=== PATIENT | male | born 1970 | race Two or more races ===

== ENCOUNTER 2019-01-27 22:50 | Emergency (ER) | payer SELFPAY ==
[~2019-01-27] VITALS: Ht 185.4 cm; Wt 99.8 kg
[2019-01-27 22:50] VITALS: BP 162/98
--- NOTE | 2019-01-27 22:50 | NUR ---
ED Nurse Note: Patient brought in by RA Olamide gan with complaints of abdominal pain while at work. Patient also reports that he has not has a bowel movement in 4 days. Will continue to monitor the patient.
--- NOTE | 2019-01-27 22:57 | Emergency Room Report ---
History of Present Illness General Chief Complaint: Abdominal Pain Source: Patient Present Illness HPI Is a 48-year-old male with no past medical history. He is presents with complaint abdominal pain. This been a problem for about a month. He said he felt constipated. Normally goes twice a day but now just once a day but very small. At work today, he had sharp abdominal pain and felt short of breath and got anxious. He called 911. Better now. No fever chills. Pain was diffuse. No trauma. Has radiation to the upper back area. Denies any urinary complaint. Denies any drug use. Allergies: Coded Allergies: No Known Allergies (Unverified , 01/27/19) Patient History Past Medical History: see triage record, old chart reviewed Past Surgical History: none Pertinent Family History: none Social History: Denies: smoking Immunizations: other Reviewed Nursing Documentation: PMH: Agreed; PSxH: Agreed Nursing Documentation-PM Past Medical History: No Stated History Review of Systems Eye: Denies: eye pain, blurred vision ENT: Denies: ear pain, nose congestion, throat swelling Respiratory: Denies: cough, shortness of breath Cardiovascular: Denies: chest pain, palpitations Gastrointestinal: Reports: abdominal pain; Denies: diarrhea, nausea, vomiting Musculoskeletal: Denies: back pain, joint pain Skin: Denies: rash Neurological: Denies: headache, numbness Endocrine: Denies: increased thirst, increased urine Hematologic/Lymphatic: Denies: easy bruising All Other Systems: negative except mentioned in HPI Physical Exam Vital Signs Date Time Temp Pulse Resp B/P (MAP) Pulse Ox O2 Delivery O2 Flow Rate FiO2 01/27/19 22:46 98.6 90 18 162/98 (119) 100 Room Air Vitals with high blood pressure Sp02 EP Interpretation: reviewed, normal General Appearance: well appearing, no apparent distress, alert Head: normocephalic, atraumatic Eyes: bilateral eye PERRL, bilateral eye EOMI ENT: hearing grossly normal, normal pharynx Neck: full range of motion, supple, no meningismus Respiratory: chest non-tender, lungs clear, normal breath sounds Cardiovascular #1: regular rate, rhythm, no murmur Gastrointestinal: normal bowel sounds, no mass, no organomegaly, no bruit, non- distended, tenderness - Mild, diffuse Musculoskeletal: back normal, gait/station normal, normal range of motion Psychiatric: mood/affect normal Medical Decision Making Diagnostic Impression: Primary Impression: Abdominal pain Qualified Codes: R10.84 - Generalized abdominal pain Additional Impression: Constipation Qualified Codes: K59.00 - Constipation, unspecified ER Course Patient presents with abdominal pain and the patient. X-rays unremarkable. Labs unremarkable. No evidence of an acute abdomen. No evidence of obstruction or appendicitis. Will discharge home. Other X-Ray Diagnostic Results Other X-Ray Diagnostic Results : X-Ray ordered: KUB x-rays # of Views/Limited Vs Complete: 1 View Indication: Pain EP Interpretation: Yes Interpretation: no dislocation, no soft tissue swelling, no fractures, nonspecific bowel gas Impression: No acute disease Electronically Signed by: José Miguel Galvan MD Last Vital Signs Date Time Temp Pulse Resp B/P (MAP) Pulse Ox O2 Delivery O2 Flow Rate FiO2 01/27/19 22:46 98.6 90 18 162/98 (119) 100 Room Air Status: improved Disposition: HOME, SELF-CARE Condition: Stable Scripts Polyethylene Glycol 3350* (MIRALAX*) 17 Gm Powd.pack 17 GM ORAL DAILY, #30 PACKET Prov: José Miguel Galvan MD 01/28/19 Additional Instructions: Follow-up with your doctor in 7 days if not better. Return if worse. José Miguel Galvan MD Jan 27, 2019 22:57
[2019-01-27] MEDS ORDERED: Ketorolac 30mg Inj IV ONE (23:00)
[2019-01-27 23:09] LABS: BASOPHILS % (AUTO) 1.4 % (0.0-2.0); EOSINOPHILS % (AUTO) 0.9 % (0.0-3.0); HEMATOCRIT 44.8 % (42.0-52.0); HEMOGLOBIN 15.7 G/DL (14.2-18.0); LYMPHOCYTES % (AUTO) 24.1 % (20.0-45.0); MEAN CORPUSCULAR VOLUME 86 FL (80-99); MONOCYTES % (AUTO) 7.4 % (1.0-10.0); NEUTROPHILS % (AUTO) 66.2 % (45.0-75.0); PLATELET COUNT 210 K/UL (150-450); RED BLOOD COUNT 5.22 M/UL (4.70-6.10); RED CELL DISTRIBUTION WIDTH 10.6 % (11.6-14.8); WHITE BLOOD COUNT 7.8 K/UL (4.8-10.8)
--- NOTE | 2019-01-27 23:14 | NUR ---
ED Nurse Note: Patient tolerated IV start at left wrist well. Blood drawn and sent to lab. Patient also tolerated medication administration well. Will continue to monitor.
[2019-01-27 23:38] LABS: ANION GAP 10 mmol/L (5-15); BLOOD UREA NITROGEN 13 mg/dL (7-18); CALCIUM 8.8 MG/DL (8.5-10.1); CARBON DIOXIDE 24 MMOL/L (21-32); CHLORIDE 100 MMOL/L (98-107); CREATININE 1.1 MG/DL (0.55-1.30); POTASSIUM 3.3 MMOL/L (3.5-5.1); SODIUM 134 MMOL/L (136-145)
[2019-01-27 23:40] LABS: APPEARANCE,URINE CLEAR; BILIRUBIN, URINE NEGATIVE (NEGATIVE); COLOR,URINE PALE YELLOW; GLUCOSE, URINE (UA) NEGATIVE (NEGATIVE); KETONES,URINE 2+ (NEGATIVE); LEUKOCYTE ESTERASE ,URINE NEGATIVE (NEGATIVE); NITRITE,URINE NEGATIVE (NEGATIVE); PH,URINE 6 (4.5-8.0); PROTEIN,URINE NEGATIVE (NEGATIVE); UROBILINOGEN,URINE NORMAL MG/DL (0.0-1.0)
--- NOTE | 2019-01-27 23:40 | Diagnostic Imaging Report ---
EXAM: XR Abdomen, 1 View CLINICAL HISTORY: PAIN TECHNIQUE: Frontal view of the abdomen pelvis . COMPARISON: none FINDINGS: Intraperitoneal space: No free air. Gastrointestinal tract: Unremarkable. No dilation. Bones joints: Unremarkable. IMPRESSION: Normal abdominal x-ray.
[2019-01-27 23:44] LABS: ALANINE AMINOTRANSFERASE 26 U/L (12-78); ALBUMIN 3.6 G/DL (3.4-5.0); ALKALINE PHOSPHATASE 89 U/L (46-116); ASPARTATE AMINO TRANSFERASE 23 U/L (15-37); BILIRUBIN,TOTAL 0.6 MG/DL (0.2-1.0)
[2019-01-28] MEDS ORDERED: MIRALAX17 G2 ORAL (00:16)
[2019-01-28 00:29] VITALS: BP 162/98
--- NOTE | 2019-01-28 00:29 | NUR ---
ED Nurse Note: Patient cleared for discharge, verbalized understanding of discharge instructions. ID band removed, IV removed. Patient is A&Ox4, has no s/s of acute distress, ambulatory with steady gait. Patient departed with all belongings.
== END 2019-01-28 00:30 | disposition home or self-care (01) ==
LOC: EDBD 22:50 → EMR 23:00
DX: K59.00 Constipation, unspecified (principal); R10.84 Generalized abdominal pain
CPT/HCPCS: 36415; 74018; 80053; 80307; 81003; 83690; 85025; 96374; 99284; J1885